=== PATIENT | female | born 2000 | race African-American/Black ===

== ENCOUNTER 2019-09-08 12:17 | Emergency (ER) | payer SELFPAY ==
[~2019-09-08] VITALS: Ht 170 cm; Wt 61.4 kg
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
[2019-09-08] MEDS ORDERED: ONDANSETRON 4 MG (ZOFRAN) ORAL DISSOLVE TAB PO ONE (13:15)
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
== END 2019-09-08 14:11 | disposition home or self-care (01) ==
LOC: ER 12:19
DX: S09.90XA Unspecified injury of head, initial encounter (principal); S80.211A Abrasion, right knee, initial encounter; R40.2142 Coma scale, eyes open, spontaneous, at arrival to emergency department; R40.2252 Coma scale, best verbal response, oriented, at arrival to emergency department; R40.2362 Coma scale, best motor response, obeys commands, at arrival to emergency department; Z88.5 Allergy status to narcotic agent; W17.89XA Other fall from one level to another, initial encounter; W22.8XXA Striking against or struck by other objects, initial encounter
CPT/HCPCS: 70450